=== PATIENT | male | born 1955 | race African-American/Black ===

== ENCOUNTER 2019-02-23 11:07 | Day surgery (SDC) | payer MEDICARE, MEDICAID ==
[~2019-02-23] VITALS: Ht 190.5 cm; Wt 129.3 kg
[2019-02-23] VITALS (8 sets, daily range): BP systolic 149–172; BP diastolic 78–89
[2019-02-23] MEDS ORDERED: normal saline 1000ml 1,000 ML IV PRN (11:35)
[2019-02-23] MEDS ORDERED: DOCU-267 PO (11:50)
[2019-02-23] MEDS ORDERED: POLY510P31 (11:50)
[2019-02-23] MEDS ORDERED: FURO80TA3 PO (11:50)
[2019-02-23] MEDS ORDERED: GABA-532 PO (11:50)
[2019-02-23] MEDS ORDERED: NIFE90TA37 PO (11:50)
[2019-02-23] MEDS ORDERED: POTA20TA19 PO (11:50)
[2019-02-23] MEDS ORDERED: SENN-162 PO (11:50)
[2019-02-23 12:17] LABS: BASOPHILS # (AUTO) 0.1 X10'3 (0-0.2); BASOPHILS % (AUTO) 0.7 % (0-1); EOSINOPHILS # (AUTO) 0.1 X10'3 (0-0.9); EOSINOPHILS % (AUTO) 1.5 % (0-6); HEMATOCRIT 23.4 % (42.0-52.0); HEMOGLOBIN 7.5 g/dl (14.0-17.9); LYMPHOCYTES # (AUTO) 0.7 X10'3 (1.1-4.8); LYMPHOCYTES % (AUTO) 10.8 % (21-51); MEAN CORPUSCULAR HEMOGLOBIN 26.6 PG (27.0-31.0); MEAN CORPUSCULAR HGB CONC 31.9 g/dL (33.0-36.5); MEAN CORPUSCULAR VOLUME 83.2 FL (78-98); MEAN PLATELET VOLUME 7.7 FL (7.4-10.4); MONOCYTES # (AUTO) 0.9 X10'3 (0-0.9); MONOCYTES % (AUTO) 13.4 % (2-12); NEUTROPHILS # (AUTO) 5.1 X10'3 (1.8-7.7); NEUTROPHILS % (AUTO) 73.6 % (42-75); PLATELET COUNT 203 X10'3 (140-440); RED BLOOD COUNT 2.81 X10'6 (4.70-6.10); RED CELL DISTRIBUTION WIDTH 14.5 % (11.5-14.5); WHITE BLOOD COUNT 6.9 X10'3 (4.5-11.0)
[2019-02-23 12:26] LABS: ALBUMIN 2.7 G/DL (3.4-5.0); ANION GAP 10 (8-16); BLOOD UREA NITROGEN 74 MG/DL (7-18); BUN/CREATININE RATIO 11.6 (5.4-32.0); CALCIUM 7.7 MG/DL (8.5-10.1); CHLORIDE 107 MMOL/L (99-107); CREATININE 6.39 MG/DL (0.60-1.10); GLUCOSE 99 MG/DL (70-104); POTASSIUM 4.7 MMOL/L (3.5-5.1); SODIUM 136 MMOL/L (135-145); TOTAL CARBON DIOXIDE 18.7 MMOL/L (24-32); eGFR 11 ML/MIN
[2019-02-23] MEDS ORDERED: heparin 1,000unit/ml 10ml vial 10 ML ONE (12:53)
[2019-02-23] MEDS ORDERED: LIDOcaine 1%/PF 5ML 10 MG/ML VIAL ONE (12:53)
[2019-02-23] MEDS ORDERED: midazolam 2 mg/2 ml injection IV PRN (12:55)
[2019-02-23] MEDS ORDERED: fentaNYL/PF 50MCG/1 ML 2ML syringe IV PRN (12:55)
[2019-02-23] MEDS ORDERED: fentaNYL/PF 50MCG/1 ML 2ML syringe ONE (12:57)
[2019-02-23] MEDS ORDERED: midazolam 2 mg/2 ml injection ONE (12:57)
[2019-02-23] MEDS ORDERED: DESMOPRESSIN IV STA ×2 (13:33→13:43)
[2019-02-23] MEDS ORDERED: gelatin sponge, absorbable (Gelfoam 12-7MM) sponge TP ONE (13:33)
[2019-02-23] MEDS ORDERED: NORMAL SALINE IV STA ×2 (13:33→13:43)
== END 2019-02-23 16:25 | disposition home or self-care (01) ==
LOC: SSTAY O 11:07
PROVIDERS: ATTEND Radiology Vascular & Interventional Radiology
DX: I12.9 Hypertensive chronic kidney disease with stage 1 through stage 4 chronic kidney disease, or unspecified chronic kidney disease (principal); E11.22 Type 2 diabetes mellitus with diabetic chronic kidney disease; N18.9 Chronic kidney disease, unspecified; Z79.899 Other long term (current) drug therapy
CPT/HCPCS: 36415; 36558; 76937; 77001; 80048; 82948; 85025; 99152; 99153; C1750; C1769; C1894; J1644; J2001; J2250; J2597; J3010; J7030; A9270

== ENCOUNTER 2020-10-22 06:16 | Day surgery (SDC) | payer BC, MEDICAID ==
[~2020-10-22] VITALS: Ht 186.7 cm; Wt 90.9 kg
[~2020-10-22 06:16] MED LIST: DOCU-267 PO; FURO80TA3 PO; GABA-532 PO; NIFE90TA61 PO; POLY510P31; POTA20TA19 PO; SENN-263 PO
[2020-10-22 06:39] VITALS: BP 119/71
[2020-10-22] MEDS ORDERED: fentaNYL/PF 50MCG/1 ML 2ML syringe ONE (07:22)
[2020-10-22] MEDS ORDERED: MIDAZolam 5mg/5ml vial ONE (07:22)
[2020-10-22] MEDS ORDERED: AMIO200T27 PO (07:40)
[2020-10-22] MEDS ORDERED: CALC668T PO (07:41)
[2020-10-22] MEDS ORDERED: VITB12 (07:42)
[2020-10-22] MEDS ORDERED: CYCL5TAB PO (07:43)
[2020-10-22] MEDS ORDERED: FINA5TAB11 PO (07:43)
[2020-10-22] MEDS ORDERED: CYCL-1 PO (07:44)
[2020-10-22] MEDS ORDERED: FOLI0.8C PO (07:45)
[2020-10-22] MEDS ORDERED: INSU100I40 (07:46)
[2020-10-22] MEDS ORDERED: VIT1TABL48 PO (07:47)
[2020-10-22] MEDS ORDERED: METO-395 PO (07:47)
[2020-10-22] MEDS ORDERED: FLO0.4C PO (07:48)
[2020-10-22 08:17] VITALS: BP 97/60
[2020-10-22 08:27] VITALS: BP 92/54
[2020-10-22 08:37] VITALS: BP 92/50
[2020-10-22 08:47] VITALS: BP 115/71
== END 2020-10-22 09:00 | disposition home or self-care (01) ==
LOC: GI LAB 06:16
PROVIDERS: ATTEND Internal Medicine Gastroenterology
DX: Z12.11 Encounter for screening for malignant neoplasm of colon (principal); I10 Essential (primary) hypertension; G82.20 Paraplegia, unspecified; Z79.899 Other long term (current) drug therapy
CPT/HCPCS: G0104; G0500; J2250; J3010; J7040; 45378; 99152; A4620

== ENCOUNTER 2020-10-23 12:04 | Day surgery (SDC) | payer BC, MEDICAID ==
[~2020-10-23] VITALS: Ht 185.4 cm; Wt 90.9 kg
[~2020-10-23 12:04] MED LIST changes: +AMIO200T27 PO; +CALC668T PO; +CYCL-1 PO; +CYCL5TAB PO; -DOCU-267 PO; +FINA5TAB11 PO; +FLO0.4C PO; +FOLI0.8C PO; -GABA-532 PO; +INSU100I40; +METO-395 PO; -NIFE90TA61 PO; -POLY510P31; -POTA20TA19 PO; +VIT1TABL48 PO; +VITB12
[2020-10-23 12:21] VITALS: BP 115/76
[2020-10-23] MEDS ORDERED: fentaNYL/PF 50MCG/1 ML 2ML syringe ONE (13:16)
[2020-10-23] MEDS ORDERED: MIDAZolam 5mg/5ml vial ONE (13:16)
[2020-10-23 14:11] VITALS: BP 104/73
[2020-10-23 14:21] VITALS: BP 94/62
[2020-10-23 14:31] VITALS: BP 103/66
[2020-10-23 14:41] VITALS: BP 99/63
== END 2020-10-23 15:10 | disposition home or self-care (01) ==
LOC: GI LAB 12:04
PROVIDERS: ATTEND Internal Medicine Gastroenterology
DX: Z12.11 Encounter for screening for malignant neoplasm of colon (principal)
CPT/HCPCS: G0121; G0500; J2250; J3010; J7040; 45378; 99152; 99153; A4620

== ENCOUNTER 2021-02-11 09:20 | Day surgery (SDC) | payer BC, MEDICAID ==
[2021-02-11] VITALS (21 sets, daily range): BP systolic 114–148; BP diastolic 57–91
[~2021-02-11] VITALS: Ht 190.5 cm; Wt 98.4 kg
[2021-02-11] MEDS ORDERED: ASPI-107 PO (10:06)
[2021-02-11] MEDS ORDERED: CYCL-1 PO (10:06)
[2021-02-11 10:39] LABS: ALBUMIN 3.5 G/DL (3.4-5.0); ANION GAP 17 (8-16); BLOOD UREA NITROGEN 83 MG/DL (7-18); BUN/CREATININE RATIO 6.3 (5.4-32.0); CALCIUM 8.1 MG/DL (8.5-10.1); CHLORIDE 98 MMOL/L (99-107); CREATININE 13.17 MG/DL (0.60-1.10); GLUCOSE 177 MG/DL (70-104); SODIUM 135 MMOL/L (135-145); TOTAL CARBON DIOXIDE 20.1 MMOL/L (24-32); eGFR 5 ML/MIN
[2021-02-11 10:43] LABS: BASOPHILS % (AUTO) 0.5 % (0-1); EOSINOPHILS # (AUTO) 0.1 X10'3 (0-0.9); EOSINOPHILS % (AUTO) 2.1 % (0-6); HEMATOCRIT 34.2 % (42.0-52.0); LYMPHOCYTES # (AUTO) 0.7 X10'3 (1.1-4.8); LYMPHOCYTES % (AUTO) 17.4 % (21-51); MEAN CORPUSCULAR HEMOGLOBIN 28.1 PG (27.0-31.0); MEAN CORPUSCULAR VOLUME 87.7 FL (78-98); MONOCYTES # (AUTO) 0.4 X10'3 (0-0.9); MONOCYTES % (AUTO) 9.4 % (2-12); NEUTROPHILS # (AUTO) 2.9 X10'3 (1.8-7.7); NEUTROPHILS % (AUTO) 70.6 % (42-75); PLATELET COUNT 93 X10'3 (140-440)
[2021-02-11 10:48] LABS: POTASSIUM 6.8 MMOL/L (3.5-5.1)
--- NOTE | 2021-02-11 10:55 | NUR ---
Critical K+ called to Dr. Hunt. per Dr. Hunt, nurse to call Dr. Coats for orders.
--- NOTE | 2021-02-11 11:05 | NUR ---
Called and left voicemail with Dr. Coats for return call.
[2021-02-11] MEDS ORDERED: albuterol 2.5 MG/3 ML nebule CONTNEB ONE (11:35)
[2021-02-11] MEDS ORDERED: PATIROMER CALCIUM SORBITEX 8.4 GM POWD.PACK PO ONE (11:35)
[2021-02-11] MEDS ORDERED: sodium bicarbonate (8.4%) 1 mEq/ml syringe IV ONE (11:35)
[2021-02-11] MEDS: calcium chloride 100 MG/1 ML inj IV ONE ×2 (11:35→12:15)
[2021-02-11] MEDS ORDERED: insulin regular, human U-100 3ml vial - multi-dose IV ONE (11:35)
[2021-02-11] MEDS ORDERED: dextrose 50%-water 50ml dispensing syringe IV ONE (11:35)
--- NOTE | 2021-02-11 11:35 | NUR ---
New orders noted per Dr. Coats.
[2021-02-11] MEDS ORDERED: calcium gluconate inj. 1 GM in normal saline 100ml IV soln 100 ML IV ONE (12:40)
--- NOTE | 2021-02-11 13:00 | NUR ---
Call received from [facility]. Per staff member, pt to go to dialysis treatment after IR procedure.
[2021-02-11] MEDS ORDERED: CALCIUM GLUC 1gm/50ml NACL,iso 50 ML IV ONE (13:02)
--- NOTE | 2021-02-11 13:25 | NUR ---
Patient taken off nebulizer tx due to medication running out.
[2021-02-11] MEDS ORDERED: LIDOcaine 1%/PF 5ML 10 MG/ML VIAL ONE (13:29)
[2021-02-11] MEDS ORDERED: midazolam 1 mg/ML 2ml injection ONE (13:29)
[2021-02-11] MEDS ORDERED: iohexol 300mg/ml 100ml inj. ONE (13:30)
[2021-02-11] MEDS ORDERED: fentaNYL/PF 50MCG/1 ML 2ML syringe ONE ×2 (13:30→14:19)
[2021-02-11] MEDS ORDERED: heparin 1,000 UNITS/NS 500ml 500 ML ONE (13:30)
--- NOTE | 2021-02-11 14:27 | NUR ---
RT AT [facility]. UNABLE TO ASSESS PT POST CONT NEB. ROMEO BRADEN AGREED TO TAKE PT OFF TX Addendum: 02/11/21 at 1428 by Shruthi Kennedy RT Amended: Links added.
--- NOTE | 2021-02-11 14:40 | NUR ---
I have received report from Sophia Vázquez and had the opportunity to ask questions and assume patient care.
--- NOTE | 2021-02-11 15:30 | NUR ---
Pt sitting up in bed, finished 100% of lunch tray. Site stable, JOSEG CD&I. VS stable as charted. Will continue to monitor.
== END 2021-02-11 16:30 | disposition home or self-care (01) ==
LOC: SSTAY O 09:20
PROVIDERS: ATTEND Radiology Diagnostic Radiology
DX: T82.858A Stenosis of other vascular prosthetic devices, implants and grafts, initial encounter (principal); N18.4 Chronic kidney disease, stage 4 (severe); Z79.899 Other long term (current) drug therapy; Y83.2 Surgical operation with anastomosis, bypass or graft as the cause of abnormal reaction of the patient, or of later complication, without mention of misadventure at the time of the procedure; Y92.89 Other specified places as the place of occurrence of the external cause
CPT/HCPCS: 36415; 36902; 80048; 82948; 85025; 85610; 94640; 99152; 99153; C1725; C1769; C1894; J1644; J2250; J3010; Q9967; 94760; A7015; J1815